=== PATIENT | female | born 1995 | race Caucasian/White ===

== ENCOUNTER 2021-06-27 07:02 | Inpatient (IN) | payer BC ==
[~2021-06-27] VITALS: Ht 152.4 cm; Wt 45.4 kg
--- NOTE | ~2021-06-27 | O ---
[facility] [place] [address] [place] [address] OPERATIVE REPORT Name: PEARL BRANCH Geovanni Room #: 438-P ADM IN M.R.#: [id number] Admission: 06/27/21 Attend Phys: Galdino Villa MD Discharge: Date of : 89 Report #: [id number] THIS REPORT FOR: cc: FAM - No family physician/PCP FAM - No family physician/PCP Dave Ware MD ~ DATE OF SERVICE: 06/27/2021 PREOPERATIVE DIAGNOSIS: Gastroparesis. POSTOPERATIVE DIAGNOSIS: Gastroparesis. OPERATION: Laparoscopic removal of gastric stimulator. SURGEON: Dave Ware MD ANESTHESIA: General. ESTIMATED BLOOD LOSS: Minimal. SPECIMENS: None. DESCRIPTION OF PROCEDURE: After informed consent was obtained, the patient was brought to the operating room and placed supine. SCDs were placed and working, and general anesthesia was induced. The abdomen was prepped and draped in the usual sterile fashion. Four trocars were placed by Dr. Villa. Please see his operative note. I was able to use trocars to grasp the stomach. The attachments of the leads were identified. The 2 Ethibond sutures were cut. I was then able to dissect the wafers from the stomach and cut the Prolene sutures. The leads pulled out very easily. The 2 wafers were removed as well. The leads were cut and removed through the 12 mm trocar. The leads were then pulled out after making an incision over the generator. Cautery dissection was made down to the generator. It was freed up from its capsule. The leads and the generator were removed in 1 piece. The patient stayed in the OR to undergo a gastric bypass with Dr. Villa. COMPLICATIONS: None. DISPOSITION: The patient will stay in the OR for procedure with Dr. Villa. By: [id number] [id number] Dave Ware MD /nt
--- NOTE | ~2021-06-27 | O ---
[facility] [place] [address] OPERATIVE REPORT Name: PEARL BRANCH Room #: 438-P [facility] IN M.R.#: [id number] Admission: 06/27/21 Attend Phys: Galdino Villa MD Discharge: Date of : 89 Report #: [id number] THIS REPORT FOR: cc: KARINE - No family physician/PCP FAM - No family physician/PCP Galdino Villa MD ~ DATE OF SERVICE: 06/28/2021 PREOPERATIVE DIAGNOSIS: Severe gastroparesis. POSTOPERATIVE DIAGNOSIS: Severe gastroparesis. PROCEDURES: 1. Laparoscopic Karan-en-Y gastrojejunostomy. 2. Upper GI endoscopy. SURGEON: Galdino Villa MD TAXI DRIVER SUPERVISOR: Etta Stewart MS3 INDICATIONS FOR THE PROCEDURE: The patient is a 25-year-old female who has been troubled by his chronic refractory symptoms of severe gastroparesis. She had significant amount of weight loss. She had a gastric pacemaker feeding tubes placed in the past and she continues to lose weight. The pacemaker has not been functioning at present. She is unable to keep anything down and her abdominal symptoms continued to persist. The patient was advised Karan-en-Y gastrojejunostomy. The patient showed understanding and agreed to proceed. PROCEDURE IN DETAIL: After explaining to the patient in detail and informed consent was obtained, the patient was identified in the preoperative holding area. The patient was transferred to the operating room and was placed in supine position. Sequential compression devices were placed for DVT prophylaxis. Preoperative antibiotics were given. After induction of anesthesia, the abdomen was prepped and draped in a sterile fashion. Through a left upper quadrant 1 cm incision and using Optiview technique, peritoneal cavity was entered and pneumoperitoneum was created. So thereafter under direct vision, another 5 mm trocar was placed in the left mid abdomen, another 12 mm trocar was placed in the right mid abdomen, another 5 mm trocar was placed in the right flank, and through a 1 cm incision in the epigastrium, a Madisyn retractor was introduced and the left lobe of the liver was retracted. Prior to this, the patient had the gastric pacemaker removed by Dr. Ware and a separate dictation will be done by Dr. Ware. I started to take down some of the gastroepiploics and few short gastrics along the greater curvature of the stomach. I wanted to create a larger pouch than normal. The gastrohepatic omentum was divided. I divided the small blood vessels and the fatty tissues along the lesser curve of the stomach using Endo-KENA white load stapler with [address] [address] OPERATIVE REPORT Name: PEARL BRANCH Geovanni Room #: 438-P [facility] IN ..#: [id number] Admission: 06/27/21 Attend Phys: Galdino Villa MD Discharge: Date of : 89 Report #: [id number] Evie-Strips. I then continued to create the gastric pouch by dividing the stomach by starting division of the proximal and middle third of the stomach in an oblique fashion towards the fundus of the stomach. So this was done with Endo-KENA green load stapler with Evie-Strips. I then retracted the transverse mesocolon. The small bowel was identified at the ligament of Treitz and was measured downstream for about 40 cm and enterotomy was made at this point. A posterior gastrojejunostomy was made using an Endo-KENA 60 mm blue load stapler. The common gastroenterotomy was then closed in layers using 2-0 Vicryl sutures using an EndoStitch. I then divided the biliary limb just proximal to the anastomosis using another blue load stapler with Evie-Strips. The Karan limb was then measured downstream for about 40 cm. An enterotomy was made at this point. Another enterotomy was made on the biliary limb and a [id number]-[id number] jejunojejunostomy was made using a blue load stapler. The common enterotomy was then closed using another blue load stapler with Evie-Strips. The mesenteric defect at the jejunojejunostomy was closed using 2-0 Ethibond sutures. I then occluded the Karan limb just distal to the anastomosis and upper GI endoscopy was performed. The Karan limb was entered easily without difficulty and an air leak test was performed, which was negative. This was done by irrigation of fluid along the staple line and by insufflation of the stomach. Stomach was suctioned out and scope was removed. Absolute hemostasis was ensured. Thorough saline irrigation was given. Approximately about 10 mL of lidocaine and Marcaine mix was instilled into the left hemidiaphragm. The Madisyn retractor was removed. The 12 mm port site incision was closed with 0 Vicryl for the fascia. Skin was closed with 4-0 Monocryl for the incisions. Dermabond was applied. The patient was stable at the end of the procedure. The patient was awoken from anesthesia and was transferred to the recovery room in stable condition. Estimated blood loss was approximately 20 mL. CONDITION: The patient is stable. FLUIDS: Given per anesthesia notes. SPECIMEN SENT: None. COMPLICATIONS: None. ANESTHESIA: General anesthesia. By: [id number] Galdino Villa MD /nt
[~2021-06-27 07:02] MED LIST: CIPRO500 MG PO; IBUPROFEN 600600 M1 PO; NORCO 5-325 TA1 EACH PO; PERCOCET PO; PHENERGAN 25 MG25 M1 PO; SPRINTEC1 EACH PO; TRAMADOL 50 MG50 MG PO; TRANSDERM-SCOP1 EACH TRANSDERM; ZOFRAN ODT4 MG PO; ZOFRAN4 MG PO
[2021-06-27 08:08] LABS: HEMATOCRIT 43.1 % (37.0-47.0); HEMOGLOBIN 15.1 gm/dL (12.0-15.0); MCH 31.6 pg (26.0-34.0); MCHC 35.1 g/dL (28.0-37.0); RBC 4.79 mil/uL (4.20-5.00); RDW 12.3 % (10.5-14.5); WBC 5.7 thou/uL (4.0-11.0)
[2021-06-27 08:30] LABS: ALBUMIN 4.1 g/dL (3.4-5.0); CALCIUM 9.7 mg/dL (8.5-10.1); CREATININE 1.4 mg/dL (0.6-1.0); TOTAL BILIRUBIN 0.6 mg/dL (0.2-1.0); TOTAL PROTEIN 8.5 g/dL (6.4-8.2)
[2021-06-27 08:34] LABS: POTASSIUM 2.3 mmol/L (3.5-5.1)
[2021-06-27 09:46] VITALS: BP 91/65
[2021-06-27 14:54] VITALS: BP 120/79
[2021-06-27 15:05] VITALS: BP 128/71
[2021-06-27 15:20] VITALS: BP 121/70
[2021-06-27 15:35] VITALS: BP 122/68
--- NOTE | 2021-06-27 16:15 | NUR ---
ASSUMED CARE OF PT AT 1440 THIS AFTERNOON FROM PACU. PT HAS GI DEVICE REMOVED. LAP SITES X4 WITH DERMA-KLINE. RN PERFORMED PRIMARY ASSESS. SET PT UP WITH FALL RISK PRECAUTIONS AND ADMISSION HX. VSS, EVERY 15MIN FOR THE FIRST HOUR AND NOTED. ASSESSMENTS NOTED IN CHART AND OTHERWISE UNREMARKABLE. MEDS AND TX GIVEN NEEDED AND SCHEDULED. CALL LIGHT AND OTHER NEEDS ARE WITHIN REACH. WILL MONITOR AND NOTE ANY CHANGES.
[2021-06-27 19:03] VITALS: BP 106/69
[2021-06-28 04:00] VITALS: BP 99/66
--- NOTE | 2021-06-28 04:07 | NUR ---
ALERT AND ORIENTED. PT BEEN UP TO THE BATHROOM. VOIDING WITH NO DIFFICULTY. SHE HAS BEEN AFEBRILE. CONTINUES TO HAVE NAUSEA AND VOMITING WITH MODERATE RELIEF FROM MEDICATIONS. LAP SITES LOOK OKAY. NO FLATUS, BURPING SOME, DID NOT WANT TO WALK THE HALLWAYS YET.CONTINUES ON IVF AND ABTS.NO CHEST PAIN OR PALPITATIONS. WILL CONTINUE WITH POC TILL EOS.
[2021-06-28 08:17] VITALS: BP 98/64
--- NOTE | 2021-06-28 09:51 | NUR ---
Assumed care of pt at 0700. Pt a&ox4. Surgical incisions clean, dry, and well-approximated. Pt c/o nausea and pain. Anti-emetic and pain medicine administered. IVF infusing. Encouraged ambulation and the use of IS. Call light within reach. Will continue to monitor.
--- NOTE | 2021-06-28 11:58 | NUR ---
INITIAL ASSESSMENT: Received consult. YOHAN reviewed chart. Pt is s/p laparoscopic removal of gastric stimulator. Pt is on IV abx and diet advanced to clear liquids today. SW met with pt at bedside. Introduced role of SW. Pt is alert/orientated x 4. Pt reports she lives in [place], but is in town for several more weeks. Pt is from the [facility] and is staying with her mother. Pt is normally independent with ADLs. No use of DME. Pt states she has not yet found a PCP in [place], but she will find one when she returns. Plan is for pt to discharge home when medically stable. SW is following to assist as needed with discharge planning.
[2021-06-28 13:01] LABS: CREATININE 1.1 mg/dL (0.6-1.0)
[2021-06-28 13:03] LABS: POTASSIUM 2.5 mmol/L (3.5-5.1)
--- NOTE | 2021-06-28 15:21 | NUR ---
PT OBSERVED AMBULATING AROUND THE NURSING UNIT W/SUPERVISION OF NURSING STAFF. PT AND PT'S AUNT INDICATE PT WITH D/C TO HER MOM'S HOUSE UPON D/C FROM [facility]. NO STAIRS TO NAVIGATE UPON D/C. P.T. EVAL DEFERRED AT THIS TIME.
[2021-06-28 19:25] VITALS: BP 106/77
--- NOTE | 2021-06-29 01:47 | NUR ---
ASSESSED AT START OF SHIFT. PT C/O PAIN AND NAUSEA MANAGED BY IV MORPHINE AND ZOFRAN. BROWN COLOR EMESIS NOTED. PT CONCERNED ABOUT THE COLOR EDUCATION PROVIDED. IV INTACT AND FLUIDS INFUSING. LOW POTASSIUM IV k+ INFUSING. UP WITH SBA TO THE BATHROOM. FALL PREC IN PLACE AND CALL LIGHT AT REACH WILL CONT TO MONITOR. ENCOURAGED AMBULATION
[2021-06-29 03:15] VITALS: BP 102/70
[2021-06-29 07:30] VITALS: BP 98/65
--- NOTE | 2021-06-29 09:27 | NUR ---
Assumed care of pt at 0700. Pt a&ox4. IVF infusing. Upper GI study this am. BMP ordered. Diet advanced to full liquid. SBA. Pain controlled with prn pain medications. Call light within reach. Fall precautions in place. Will continue to monitor.
[2021-06-29 10:28] LABS: CALCIUM 8.1 mg/dL (8.5-10.1); CREATININE 1.1 mg/dL (0.6-1.0); POTASSIUM 3.4 mmol/L (3.5-5.1)
[2021-06-29] MEDS ORDERED: NORCO5 PO (14:43)
[2021-06-29 15:41] VITALS: BP 94/64
[2021-06-29 20:30] VITALS: BP 94/63
--- NOTE | 2021-06-30 00:13 | NUR ---
PT OBSERVED WALKING THE HALLWAYS WITH MOM AT THE START OF SHIFT. PT C/O NAUSEA AND PAIN AND GETTING ALL THE PRN MEDS. PT REPORTS FEELING LIKE STOMACH IS SWOLLEN ON THE "INSIDE" BOWEL SOUNDS NOTED. LAP SITES WITH NO SIGNS OF INFLAMATION. CONTINUES ON IVF. OBSERVED USING LAPTOP MOST OF THE TIME. AFEBRILE. PT REPORTS FEELING ALITTLE BETTER.CALLS WITH NEEDS.
[2021-06-30 07:27] VITALS: BP 91/65
--- NOTE | 2021-06-30 09:46 | NUR ---
ASSUMED PT CARE THIS AM. PT IS ALERT & ORIENTED X4. PT IS UP AD EARL. PT HAS IV SITE ON L AND R HAND. PT IS ON ROOM AIR. PT C/O OF NAUSEA AND PAIN THIS AM. GIVEN PAIN AND NAUSEA MEDICATION PER PT REQUEST. WILL CONTINUE TO MONITOR PT. FOLLOW POC.
[2021-06-30 09:51] VITALS: BP 91/65
== END 2021-06-30 12:09 | disposition home or self-care (01) | DRG 328 ==
LOC: TBA 07:02 → PRE 09:19 → TBA 10:03 → 4S 14:20 → PRE 14:35 → 4S 06-30 12:09
PROVIDERS: Surgery; ADMIT Surgery; ATTEND Surgery
PROC: 0DP Gastrointestinal System, Removal (ICD-10-PCS; principal; 2021-06-27)
PROC: 0D164ZA Bypass Stomach to Jejunum, Percutaneous Endoscopic Approach (ICD-10-PCS; 2021-06-28)
PROC: 0DJ08ZZ Inspection of Upper Intestinal Tract, Via Natural or Artificial Opening Endoscopic (ICD-10-PCS; 2021-06-28)
DX: K31.84 Gastroparesis (principal); K44.9 Diaphragmatic hernia without obstruction or gangrene; E87.6 Hypokalemia; K21.9 Gastro-esophageal reflux disease without esophagitis; Z20.822 Contact with and (suspected) exposure to COVID-19
CPT/HCPCS: 10102; 50010; 50101; 50222; 50386; 50555; 50804; 51489; 52265; 52266; 53307; 54022; 54118; 55326; 56462; 56525; 56526; 56531; 57092; 58574; 58587; 58869; 58870; 58872; 58873; 58911; 62110; 62900; 70005